=== PATIENT | male | born 1950 | race Caucasian/White ===

== ENCOUNTER 2024-06-16 08:17 | Emergency (ER) | payer OTHER ==
[2024-06-16 09:52] VITALS: BP 171/86; PULSE 90; RESP 18; TEMP 98.2; BMI 27.7
== END 2024-06-16 11:25 | disposition home or self-care (01) ==
LOC: FER 08:17
PROC: 0T9B70Z Drainage of Bladder with Drainage Device, Via Natural or Artificial Opening (ICD-10-PCS; principal; 2024-06-16)
DX: R33.9 Retention of urine, unspecified (principal); R10.30 Lower abdominal pain, unspecified
CPT/HCPCS: 81003; 81015; 87086; 99284-25